=== PATIENT | female | born 2000 | race Two or more races ===

== ENCOUNTER 2024-05-16 14:06 | Emergency (ER) | payer OTHER ==
[~2024-05-16] VITALS: Ht 160 cm; Wt 59.1 kg
[2024-05-16 14:15] VITALS: BP 106/59; PULSE 80; RESP 16; TEMP 97.5; O2SAT 96
[2024-05-16] MEDS ORDERED: CITA20TA28 PO (16:29)
== END 2024-05-16 16:45 | disposition home or self-care (01) ==
LOC: ER 14:07
DX: Z00.00 Encounter for general adult medical examination without abnormal findings (principal); Z76.0 Encounter for issue of repeat prescription; Z88.0 Allergy status to penicillin
CPT/HCPCS: 99281